=== PATIENT | female | born 1960 | race Caucasian/White ===

== ENCOUNTER → 2019-04-23 | Day surgery (SDC) | payer OTHER ==
[~2019-04-23] MED LIST: CALCIUM600 MG PO; GLUCOSAMIN-CHO1 EACH PO; HYDROCHLOROTH12.5 MG PO; LIPITOR20 MG PO; LISINOPRIL40 MG PO; MULTI-DAY1 TAB PO; NAPROXEN SODIU550 MG PO; NORVASC5 MG PO; VITAMIN D5000 UNIT PO; ZITHROMAX500 MG PO
== END | disposition home or self-care (01) ==
LOC: ADM 04-21 15:15 → CIR.AMB 10:24
DX: N85.02 Endometrial intraepithelial neoplasia [EIN] (principal)